=== PATIENT | male | born 1990 | race Caucasian/White ===

== ENCOUNTER 2021-11-28 21:24 | Emergency (ER) | payer OTHER, MEDICAID ==
[~2021-11-28] VITALS: Ht 182.9 cm; Wt 81.7 kg
== END 2021-11-28 22:49 | disposition home or self-care (01) ==
LOC: ED 21:24
DX: S09.90XA Unspecified injury of head, initial encounter (principal); W22.8XXA Striking against or struck by other objects, initial encounter
CPT/HCPCS: 70450; 99284-25